=== PATIENT | female | born 1970 | race Caucasian/White ===

== ENCOUNTER 2016-12-05 13:16 | Emergency (ER) | payer OTHER ==
[~2016-12-05] VITALS: Ht 162.6 cm; Wt 80.3 kg
[~2016-12-05 13:16] MED LIST: FLUO20CA36 PO
[2016-12-05 13:19] VITALS: BP 136/75
[2016-12-05] MEDS ORDERED: IBUPROFEN 600 MG TABLET PO ONE ×2 (13:42→14:00)
[2016-12-05] MEDS ORDERED: predniSONE 20 MG TABLET ONE (13:42)
[2016-12-05] MEDS ORDERED: predniSONE 20 MG TABLET PO ONE (14:00)
== END 2016-12-05 13:58 | disposition home or self-care (01) ==
LOC: ER 13:17
DX: J02.9 Acute pharyngitis, unspecified (principal); J45.909 Unspecified asthma, uncomplicated; F41.9 Anxiety disorder, unspecified; F32.9 Major depressive disorder, single episode, unspecified; F17.200 Nicotine dependence, unspecified, uncomplicated; F31.9 Bipolar disorder, unspecified; Z88.8 Allergy status to other drugs, medicaments and biological substances
CPT/HCPCS: 99283; A4606; J7512; Z7610

== ENCOUNTER 2017-01-18 09:33 | Emergency (ER) | payer OTHER ==
[~2017-01-18] VITALS: Ht 162.6 cm; Wt 79.4 kg
--- NOTE | 2017-01-18 09:40 | NUR ---
Bibra from home due to RUQ/ and epigastric pain, 10/10, constant pain since last night. Patient also reported nausea, vomitting and diarhea. Patient is aao3, afebrile and non diaphoretic,. vss. gowend and placed on tele monitor. Awaiting for md
--- NOTE | 2017-01-18 09:48 | NUR ---
Iv accesed to rac 20. blood sample collected
--- NOTE | 2017-01-18 09:49 | NUR ---
Urine sample collected and sent to lab
--- NOTE | 2017-01-18 09:50 | NUR ---
AT BEDSIDE FOR EVAL
[2017-01-18] MEDS ORDERED: IV NS 0.9% 1,000 ML BAG IV ONE (10:00)
[2017-01-18] MEDS ORDERED: ONDANSETRON HCL/PF 4 MG/2 ML VIAL IVP ONE (10:00)
[2017-01-18] MEDS ORDERED: KETOROLAC TROMETHAMINE INJ 30 MG/ML VIAL IV ONE (10:00)
[2017-01-18] MEDS ORDERED: IV NS 0.9% 1,000 ML ONE (10:01)
[2017-01-18] MEDS ORDERED: ONDANSETRON HCL/PF 4 MG/2 ML VIAL ONE (10:01)
[2017-01-18] MEDS ORDERED: KETOROLAC TROMETHAMINE INJ 30 MG/ML VIAL ONE (10:01)
[2017-01-18 10:06] LABS: BASOPHILS % (AUTO) 0.2 % (0.0-2.0); EOSINOPHILS % (AUTO) 0.5 % (0.0-6.0); HEMATOCRIT 42 % (33-45); HEMOGLOBIN 13.4 g/dL (11.5-14.8); LYMPHOCYTES # (AUTO) 1.5 /CMM (0.8-4.8); LYMPHOCYTES % (AUTO) 15.8 % (20.0-44.0); MEAN CORPUSCULAR HEMOGLOBIN 28 PG (26.0-33.0); MEAN CORPUSCULAR HGB CONC 32 g/dl (31.0-36.0); MEAN CORPUSCULAR VOLUME 87 fL (82-100); MONOCYTES # (AUTO) 0.2 /CMM (0.1-1.30); MONOCYTES % (AUTO) 2.1 % (2.0-12.0); NEUTROPHILS # (AUTO) 8.1 /CMM (1.8-8.9); NEUTROPHILS % (AUTO) 81.4 % (43.0-81.0); PLATELET COUNT (AUTO) 344 /CMM (150-450); RDW COEFFICIENT OF VARIATION 14.6 (11.5-15.0); RED BLOOD CELL COUNT(AUTO) 4.76 MIL/uL (4.0-5.2); WHITE BLOOD COUNT (AUTO) 9.8 K/uL (4.3-11.0)
[2017-01-18 10:09] LABS: APPEARANCE,URINE Clear (CLEAR); BILIRUBIN,URINE Negative (NEGATIVE); BLOOD, URINE Negative Ery/uL (NEGATIVE); COLOR,URINE Yellow (YELLOW); KETONES,URINE 40 (NEGATIVE); LEUKOCYTE ESTERASE ,URINE Negative (NEGATIVE); NITRITE, URINE Negative (NEGATIVE); PROTEIN,URINE Negative (NEGATIVE); UGLUCOSE Negative (NEGATIVE); UROBILINOGEN,URINE 0.2 EU/dL (0.2)
[2017-01-18 10:11] LABS: PREGNANCY TEST URINE QUAL NEGATIVE (NEGATIVE)
[2017-01-18 10:11] LABS: CALCIUM, SERUM 9.7 mg/dL (8.5-10.1); CREATININE 1.1 mg/dL (0.6-1.3)
--- NOTE | 2017-01-18 10:13 | NUR ---
Medicated patient as ordered
[2017-01-18 10:18] LABS: ALBUMIN 3.6 g/dL (3.4-5.0); BILIRUBIN,DIRECT 0.1 mg/dL (0.0-0.2); BILIRUBIN,TOTAL 0.4 mg/dL (0.2-1.0); TOTAL PROTEIN, SERUM 7.3 g/dL (6.4-8.2)
--- NOTE | 2017-01-18 10:24 | NUR ---
us and ct not available at this time, dr rodriguez and patient informed
[2017-01-18 10:36] LABS: ADD URINE CULTURE NO; BACTERIA,URINE Rare /HPF (None Seen); RBC,URINE 0-2 /HPF (0-2); SQUAMOUS EPITHELIAL CELL,UR Rare /HPF (None Seen); WBC,URINE 0-2 /HPF (0-3)
[2017-01-18 13:08] VITALS: BP 114/58
--- NOTE | 2017-01-18 13:09 | NUR ---
IV removed. Catheter intact and site benign. Pressure and 4x4 applied to site. No bleeding noted.
--- NOTE | 2017-01-18 13:09 | NUR ---
Patient discharged to home in stable condition. Written and verbal after care instructions given. Patient verbalizes understanding of instruction.
== END 2017-01-18 13:10 | disposition home or self-care (01) ==
LOC: ER 09:34
DX: K80.20 Calculus of gallbladder without cholecystitis without obstruction (principal); K80.50 Calculus of bile duct without cholangitis or cholecystitis without obstruction; J45.909 Unspecified asthma, uncomplicated; F41.9 Anxiety disorder, unspecified; F32.9 Major depressive disorder, single episode, unspecified; F31.9 Bipolar disorder, unspecified; F17.200 Nicotine dependence, unspecified, uncomplicated; Z88.8 Allergy status to other drugs, medicaments and biological substances; Z91.048 Other nonmedicinal substance allergy status
CPT/HCPCS: 36415; 76705-TC; 80048-TC; 80076-TC; 81000-TC; 83690-TC; 84703-TC; 85025-TC; A4606; J1885; J2405; J7030; Z7610

== ENCOUNTER 2017-01-22 06:59 | Emergency (ER) | payer OTHER ==
[~2017-01-22] VITALS: Ht 162.6 cm; Wt 79.4 kg
--- NOTE | 2017-01-22 07:05 | NUR ---
46 YO FEMALE BB SELF. PT IS ALERT X 3, C/O RIGHT UPPER ABD PAIN SINCE LAST NIGHT. PT STATES SHE HAD A RECENT DX OF GALLSTONES, AND THE PAIN FEELS LIKE THE GALLSTONE PAIN. PT AMBULATED TO ER BED WITH STEADY GAIT. PT SEEMS MODERATE PAIN. PT GOWNED,PLACED ON CLAIMS SUPERVISOR. WILL CONTINUE TO MONITOR
--- NOTE | 2017-01-22 07:07 | NUR ---
CHRISTOPH RODRIGUEZ MD AT BED SIDE FOR EVAL
--- NOTE | 2017-01-22 07:10 | NUR ---
RAC #20 IV ACCESS. BLOOD SAMPLE COLLECTED SENT TO LAB
[2017-01-22] MEDS ORDERED: IV SET PRIMARY PUMP SET 1 EA INFUS.SET MC ONE (07:17)
[2017-01-22] MEDS ORDERED: ONDANSETRON HCL/PF 4 MG/2 ML VIAL ONE (07:17)
[2017-01-22] MEDS ORDERED: HYDROMORPHONE 1 MG/1 ML DISP.SYRIN ONE (07:17)
[2017-01-22] MEDS ORDERED: IV NS 0.9% 500 ML IV ONE (07:17)
[2017-01-22 07:27] LABS: BASOPHILS # (AUTO) 0.1 /CMM (0.0-0.2); BASOPHILS % (AUTO) 0.8 % (0.0-2.0); EOSINOPHILS # (AUTO) 0.1 /CMM (0.0-0.7); HEMATOCRIT 36 % (33-45); HEMOGLOBIN 11.9 g/dL (11.5-14.8); LYMPHOCYTES # (AUTO) 2.1 /CMM (0.8-4.8); MEAN CORPUSCULAR HEMOGLOBIN 29 PG (26.0-33.0); MEAN CORPUSCULAR HGB CONC 33 g/dl (31.0-36.0); MEAN CORPUSCULAR VOLUME 87 fL (82-100); MONOCYTES # (AUTO) 0.4 /CMM (0.1-1.30); MONOCYTES % (AUTO) 5.1 % (2.0-12.0); NEUTROPHILS # (AUTO) 4.7 /CMM (1.8-8.9); NEUTROPHILS % (AUTO) 64.1 % (43.0-81.0); PLATELET COUNT (AUTO) 330 /CMM (150-450); RED BLOOD CELL COUNT(AUTO) 4.07 MIL/uL (4.0-5.2); WHITE BLOOD COUNT (AUTO) 7.4 K/uL (4.3-11.0)
[2017-01-22] MEDS ORDERED: HYDROMORPHONE INJ 2 MG/ML DISP.SYRIN IV ONE (07:30)
[2017-01-22] MEDS ORDERED: ONDANSETRON HCL/PF 4 MG/2 ML VIAL IVP ONE (07:30)
[2017-01-22] MEDS ORDERED: IV NS 0.9% 500 ML BAG IV ONE (07:30)
[2017-01-22 07:38] LABS: CALCIUM, SERUM 9.3 mg/dL (8.5-10.1); POTASSIUM 3.8 mmol/L (3.5-5.1)
[2017-01-22 07:43] LABS: ALBUMIN 3.2 g/dL (3.4-5.0); BILIRUBIN,DIRECT 0.1 mg/dL (0.0-0.2); BILIRUBIN,TOTAL 0.3 mg/dL (0.2-1.0); TOTAL PROTEIN, SERUM 6.5 g/dL (6.4-8.2)
--- NOTE | 2017-01-22 08:00 | NUR ---
URINE SAMPLE COLLECTED SENT TO LAB
[2017-01-22 08:23] VITALS: BP 113/73
--- NOTE | 2017-01-22 08:23 | NUR ---
IV removed. Catheter intact and site benign. Pressure and 4x4 applied to site. No bleeding noted.
--- NOTE | 2017-01-22 08:23 | NUR ---
Patient discharged to home in stable condition. Written and verbal after care instructions given. Patient verbalizes understanding of instruction.
[2017-01-22 08:52] LABS: APPEARANCE,URINE CLEAR (CLEAR); BILIRUBIN,URINE NEGATIVE (NEGATIVE); BLOOD, URINE NEGATIVE Ery/uL (NEGATIVE); COLOR,URINE YELLOW (YELLOW); KETONES,URINE NEGATIVE (NEGATIVE); LEUKOCYTE ESTERASE ,URINE NEGATIVE (NEGATIVE); NITRITE, URINE NEGATIVE (NEGATIVE); PH,URINE 5.5 (5.0-8.0); PROTEIN,URINE NEGATIVE (NEGATIVE); UGLUCOSE NEGATIVE (NEGATIVE); UROBILINOGEN,URINE 0.2 EU/dL (0.2)
[2017-01-22 08:54] LABS: PREGNANCY TEST URINE QUAL NEGATIVE (NEGATIVE)
== END 2017-01-22 09:00 | disposition home or self-care (01) ==
LOC: EDUNIT# 06:59 → ER 07:00
DX: K80.20 Calculus of gallbladder without cholecystitis without obstruction (principal); J45.909 Unspecified asthma, uncomplicated; F41.9 Anxiety disorder, unspecified; F32.9 Major depressive disorder, single episode, unspecified; F31.9 Bipolar disorder, unspecified; F17.200 Nicotine dependence, unspecified, uncomplicated; Z88.8 Allergy status to other drugs, medicaments and biological substances
CPT/HCPCS: 36415; 80048; 80076; 81001; 83690; 84703; 85025; 96374; 96375; 99284; A4606; J1170; J2405; J7040; Z7610; 81000-TC

== ENCOUNTER 2017-07-18 17:01 | Emergency (ER) | payer OTHER ==
[~2017-07-18] VITALS: Ht 167.6 cm; Wt 74.8 kg
--- NOTE | 2017-07-18 17:15 | NUR ---
R UPPER QUADRANT ABD PAIN, NON RADIATING WITH NAUSEA AND VOMITING. NAD NOTED. PT AAO X4, AMB WITH STEADY GAIT. RR EVEN AND UNLABORED. PENDING MD COVINGTON.
[2017-07-18] MEDS ORDERED: ACETAMINOPHEN 325 MG TABLET PO ONE (17:30)
[2017-07-18] MEDS ORDERED: IV NS 0.9% 1,000 ML BAG IV ONE (17:30)
[2017-07-18] MEDS ORDERED: ONDANSETRON HCL/PF 4 MG/2 ML VIAL IVP ONE (17:30)
--- NOTE | 2017-07-18 17:35 | NUR ---
URINE OBTAINED SENT TO LAB
--- NOTE | 2017-07-18 17:36 | NUR ---
ULTRASOUND AT BEDSIDE.
[2017-07-18] MEDS ORDERED: ONDANSETRON HCL/PF 4 MG/2 ML VIAL ONE (17:42)
[2017-07-18] MEDS ORDERED: ACETAMINOPHEN ES 500 MG TABLET ONE (17:42)
[2017-07-18 17:45] LABS: BASOPHILS # (AUTO) 0.1 /CMM (0.0-0.2); BASOPHILS % (AUTO) 0.5 % (0.0-2.0); EOSINOPHILS # (AUTO) 0.1 /CMM (0.0-0.7); EOSINOPHILS % (AUTO) 0.6 % (0.0-6.0); HEMATOCRIT 41 % (33-45); HEMOGLOBIN 13.8 g/dL (11.5-14.8); LYMPHOCYTES # (AUTO) 3.1 /CMM (0.8-4.8); MEAN CORPUSCULAR HEMOGLOBIN 30 PG (26.0-33.0); MEAN CORPUSCULAR HGB CONC 34 g/dl (31.0-36.0); MEAN CORPUSCULAR VOLUME 88 fL (82-100); MONOCYTES # (AUTO) 0.5 /CMM (0.1-1.30); MONOCYTES % (AUTO) 5.3 % (2.0-12.0); NEUTROPHILS % (AUTO) 61.6 % (43.0-81.0); PLATELET COUNT (AUTO) 312 /CMM (150-450); RDW COEFFICIENT OF VARIATION 15.2 (11.5-15.0); WHITE BLOOD COUNT (AUTO) 9.8 K/uL (4.3-11.0)
[2017-07-18 17:55] LABS: CALCIUM, SERUM 9.5 mg/dL (8.5-10.1); CREATININE 0.8 mg/dL (0.6-1.3); POTASSIUM 3.6 mmol/L (3.5-5.1)
[2017-07-18 18:02] LABS: ALBUMIN 3.8 g/dL (3.4-5.0); BILIRUBIN,DIRECT 0.1 mg/dL (0.0-0.2); BILIRUBIN,TOTAL 0.3 mg/dL (0.2-1.0); TOTAL PROTEIN, SERUM 7.4 g/dL (6.4-8.2)
[2017-07-18] MEDS ORDERED: KETOROLAC TROMETHAMINE INJ 30 MG/ML VIAL ONE (18:30)
[2017-07-18] MEDS ORDERED: KETOROLAC TROMETHAMINE INJ 30 MG/ML VIAL IV ONE (18:30)
[2017-07-18] MEDS ORDERED: METOCLOPRAMIDE HCL 10 MG/2 ML VIAL IV ONE (18:30)
[2017-07-18] MEDS ORDERED: METOCLOPRAMIDE HCL 10 MG/2 ML VIAL ONE (18:30)
[2017-07-18 19:02] VITALS: BP 137/63
--- NOTE | 2017-07-18 19:07 | NUR ---
IV removed. Catheter intact and site benign. Pressure and 4x4 applied to site. No bleeding noted. Patient discharged to home in stable condition. Written and verbal after care instructions given. Patient verbalizes understanding of instruction. ambulatory with a steady gait. instructed not to drive. pt verbalized understanding.
== END 2017-07-18 19:03 | disposition home or self-care (01) ==
LOC: ER 17:04
DX: K80.50 Calculus of bile duct without cholangitis or cholecystitis without obstruction (principal); K80.20 Calculus of gallbladder without cholecystitis without obstruction; R11.2 Nausea with vomiting, unspecified; J45.909 Unspecified asthma, uncomplicated; F41.9 Anxiety disorder, unspecified; F32.9 Major depressive disorder, single episode, unspecified; F31.9 Bipolar disorder, unspecified; Z88.8 Allergy status to other drugs, medicaments and biological substances; Z88.1 Allergy status to other antibiotic agents; F17.200 Nicotine dependence, unspecified, uncomplicated
CPT/HCPCS: 36415; 76705; 80048; 80076; 83690; 85025; 96361; 96374; 96375; 99285; A4606; J1885; J2405; J2765; J7030; Z7610

== ENCOUNTER 2017-09-12 19:01 | Emergency (ER) | payer OTHER ==
[~2017-09-12] VITALS: Ht 162.6 cm; Wt 76.2 kg
[2017-09-12 19:28] LABS: BASOPHILS # (AUTO) 0.1 /CMM (0.0-0.2); BASOPHILS % (AUTO) 0.6 % (0.0-2.0); EOSINOPHILS # (AUTO) 0.1 /CMM (0.0-0.7); EOSINOPHILS % (AUTO) 0.5 % (0.0-6.0); HEMATOCRIT 39 % (33-45); HEMOGLOBIN 12.9 g/dL (11.5-14.8); LYMPHOCYTES # (AUTO) 3.6 /CMM (0.8-4.8); LYMPHOCYTES % (AUTO) 29.4 % (20.0-44.0); MEAN CORPUSCULAR HEMOGLOBIN 30 PG (26.0-33.0); MEAN CORPUSCULAR HGB CONC 33 g/dl (31.0-36.0); MEAN CORPUSCULAR VOLUME 90 fL (82-100); MONOCYTES # (AUTO) 0.6 /CMM (0.1-1.30); NEUTROPHILS # (AUTO) 7.9 /CMM (1.8-8.9); NEUTROPHILS % (AUTO) 64.5 % (43.0-81.0); PLATELET COUNT (AUTO) 420 /CMM (150-450); RDW COEFFICIENT OF VARIATION 14.6 (11.5-15.0); RED BLOOD CELL COUNT(AUTO) 4.33 MIL/uL (4.0-5.2); WHITE BLOOD COUNT (AUTO) 12.3 K/uL (4.3-11.0)
[2017-09-12] MEDS ORDERED: KETOROLAC TROMETHAMINE INJ 30 MG/ML VIAL IV ONE (19:30)
[2017-09-12] MEDS ORDERED: ONDANSETRON HCL/PF 4 MG/2 ML VIAL IVP ONE (19:30)
[2017-09-12] MEDS ORDERED: MORPHINE SULFATE INJ 2 MG/ML DISP.SYRIN IV ONE (19:30)
--- NOTE | 2017-09-12 19:30 | NUR ---
46 Y/O FEMALE PLACED IN BED 7 C/O RIGHT UPPER QUAD PAIN AFTER EATING TOP LIZZY AND ROAST BEEF. HX OF GALL STONES.
[2017-09-12] MEDS ORDERED: ONDANSETRON HCL/PF 4 MG/2 ML VIAL ONE (19:33)
[2017-09-12] MEDS ORDERED: MORPHINE SULFATE INJ 4 MG/ML DISP.SYRIN ONE (19:33)
[2017-09-12] MEDS ORDERED: KETOROLAC TROMETHAMINE INJ 30 MG/ML VIAL ONE (19:33)
[2017-09-12 19:38] LABS: CALCIUM, SERUM 9.4 mg/dL (8.5-10.1); CARBON DIOXIDE 26 mmol/L (21-32); CHLORIDE 107 mmol/L (98-107); GLUCOSE 100 mg/dL (74-106); POTASSIUM 3.6 mmol/L (3.5-5.1); SODIUM SERUM 143 mmol/L (136-145); UREA NITROGEN, BLOOD 10 mg/dL (7-18)
--- NOTE | 2017-09-12 19:40 | NUR ---
PT C/O PAIN WITH N/V/ H/L PLACED AND MEDICATION GIVEN.
[2017-09-12 19:44] LABS: ALANINE AMINOTRANSFERASE 16 U/L (12-78); ALBUMIN 3.6 g/dL (3.4-5.0); ALKALINE PHOSPHATASE 60 U/L (46-116); ASPARTATE AMINOTRANSFERASE 15 U/L (15-37); BILIRUBIN,TOTAL 0.2 mg/dL (0.2-1.0); LIPASE 217 U/L (73-393); TOTAL PROTEIN, SERUM 7.3 g/dL (6.4-8.2)
[2017-09-12 19:46] LABS: TROPONIN I < 0.017 ng/mL (0.00-0.056)
--- NOTE | 2017-09-12 20:17 | NUR ---
PT RESTING COMFORTABLY FOLLOWING MEDICATIONS.
--- NOTE | 2017-09-12 20:37 | NUR ---
DX - GALLSTONES. ACI GIVEN. PT DISCHARGED HOME TO FOLLOW UP WITH PMD. PAIN RESOLVED. N/V RESOLVED.
[2017-09-12 20:38] VITALS: BP 147/85
== END 2017-09-12 20:41 | disposition home or self-care (01) ==
LOC: ER 19:03
DX: K80.20 Calculus of gallbladder without cholecystitis without obstruction (principal); J45.909 Unspecified asthma, uncomplicated; F41.9 Anxiety disorder, unspecified; F31.9 Bipolar disorder, unspecified; F17.200 Nicotine dependence, unspecified, uncomplicated; Z88.8 Allergy status to other drugs, medicaments and biological substances; Z91.048 Other nonmedicinal substance allergy status
CPT/HCPCS: 36415; 76705; 80048; 80076; 83690; 84484; 85025; 93005; 96374; 96375; 99285; A4606; J1885; J2405; Z7610; J2270

== ENCOUNTER 2017-09-26 10:10 | Emergency (ER) | payer OTHER ==
[~2017-09-26] VITALS: Ht 162.6 cm; Wt 72.6 kg
[2017-09-26 10:10] VITALS: BP 159/95
[2017-09-26] MEDS ORDERED: KETOROLAC TROMETHAMINE INJ 60 MG/2 ML VIAL IM ONE (10:30)
--- NOTE | 2017-09-26 10:31 | NUR ---
PATIENT TO ED DT ABDOMINAL PAIN SINCE LAST NIGHT,07/10, NON RADIATING. DX 2 WEEKS AGO WITH GALLSTONE. DENIES NAUSEA AND VOMITTING. VSS
[2017-09-26] MEDS ORDERED: KETOROLAC TROMETHAMINE INJ 30 MG/ML VIAL ONE (10:39)
== END 2017-09-26 10:51 | disposition home or self-care (01) ==
LOC: ER 10:11
DX: K80.70 Calculus of gallbladder and bile duct without cholecystitis without obstruction (principal); J45.909 Unspecified asthma, uncomplicated; F41.9 Anxiety disorder, unspecified; F32.9 Major depressive disorder, single episode, unspecified; F17.200 Nicotine dependence, unspecified, uncomplicated; Z88.8 Allergy status to other drugs, medicaments and biological substances; Z88.1 Allergy status to other antibiotic agents
CPT/HCPCS: A4606; J1885; Z7610

== ENCOUNTER 2017-12-10 13:34 | Emergency (ER) | payer OTHER ==
[~2017-12-10] VITALS: Ht 162.6 cm; Wt 70.3 kg
--- NOTE | 2017-12-10 13:41 | NUR ---
DIFFUSE ABD "STOMACH" PAIN SINCE YESTERDAY, "I FEEL DEHYDRATED" +NAUSEA, -VOMITING/DIARRHEA; FEELS SIMILAR TO EPISODES OF GALLSTONES
--- NOTE | 2017-12-10 14:28 | NUR ---
RAC #20 IV ACCESS. BLOOD SAMPLE COLLECTED SENT TO LAB
[2017-12-10] MEDS ORDERED: ONDANSETRON HCL/PF 4 MG/2 ML VIAL IVP ONE (14:30)
[2017-12-10] MEDS ORDERED: IV NS 0.9% 1,000 ML BAG IV ONE (14:30)
[2017-12-10] MEDS ORDERED: HYDROMORPHONE INJ 2 MG/ML DISP.SYRIN IV ONE (14:30)
--- NOTE | 2017-12-10 14:33 | NUR ---
RAFAEL CERRATO AT BEDSIDE
[2017-12-10 14:35] LABS: BASOPHILS # (AUTO) 0.1 /CMM (0.0-0.2); BASOPHILS % (AUTO) 0.8 % (0.0-2.0); EOSINOPHILS # (AUTO) 0.1 /CMM (0.0-0.7); EOSINOPHILS % (AUTO) 0.5 % (0.0-6.0); HEMATOCRIT 38 % (33-45); LYMPHOCYTES # (AUTO) 1.6 /CMM (0.8-4.8); LYMPHOCYTES % (AUTO) 13.1 % (20.0-44.0); MEAN CORPUSCULAR HEMOGLOBIN 30 PG (26.0-33.0); MEAN CORPUSCULAR HGB CONC 34 g/dl (31.0-36.0); MEAN CORPUSCULAR VOLUME 87 fL (82-100); MONOCYTES # (AUTO) 0.6 /CMM (0.1-1.30); MONOCYTES % (AUTO) 4.7 % (2.0-12.0); NEUTROPHILS # (AUTO) 9.6 /CMM (1.8-8.9); NEUTROPHILS % (AUTO) 80.9 % (43.0-81.0); PLATELET COUNT (AUTO) 335 /CMM (150-450); RDW COEFFICIENT OF VARIATION 15.7 (11.5-15.0); RED BLOOD CELL COUNT(AUTO) 4.32 MIL/uL (4.0-5.2)
--- NOTE | 2017-12-10 14:35 | NUR ---
URINE SAMPLE COLLECTED SENT TO LAB
[2017-12-10 14:40] LABS: APPEARANCE,URINE Clear (CLEAR); BILIRUBIN,URINE Negative (NEGATIVE); BLOOD, URINE Trace-intact Ery/uL (NEGATIVE); COLOR,URINE Yellow (YELLOW); KETONES,URINE Negative (NEGATIVE); LEUKOCYTE ESTERASE ,URINE Negative (NEGATIVE); NITRITE, URINE Negative (NEGATIVE); PH,URINE 6.5 (5.0-8.0); PROTEIN,URINE Negative (NEGATIVE); UGLUCOSE Negative (NEGATIVE); UROBILINOGEN,URINE 0.2 EU/dL (0.2)
[2017-12-10 14:41] LABS: CALCIUM, SERUM 9.6 mg/dL (8.5-10.1); CREATININE 0.8 mg/dL (0.6-1.3); POTASSIUM 4.1 mmol/L (3.5-5.1)
[2017-12-10] MEDS ORDERED: HYDROMORPHONE INJ 2 MG/ML DISP.SYRIN ONE (14:43)
[2017-12-10] MEDS ORDERED: ONDANSETRON HCL/PF 4 MG/2 ML VIAL ONE ×2 (14:45→15:09)
[2017-12-10 14:47] LABS: ALBUMIN 3.4 g/dL (3.4-5.0); BILIRUBIN,DIRECT 2.9 mg/dL (0.0-0.2); BILIRUBIN,TOTAL 3.5 mg/dL (0.2-1.0); TOTAL PROTEIN, SERUM 7.6 g/dL (6.4-8.2)
[2017-12-10 14:57] LABS: BACTERIA,URINE None seen /HPF (None Seen); RBC,URINE 0-2 /HPF (0-2); SQUAMOUS EPITHELIAL CELL,UR Moderate /HPF (None Seen); WBC,URINE 0-2 /HPF (0-3)
[2017-12-10] MEDS ORDERED: KETOROLAC TROMETHAMINE INJ 30 MG/ML VIAL IV ONE (15:00)
[2017-12-10] MEDS ORDERED: KETOROLAC TROMETHAMINE INJ 30 MG/ML VIAL ONE (15:09)
[2017-12-10] MEDS ORDERED: PIPERACILLIN /TAZOBACTAM 3.375 G in IV D5W 50 ML IV ONE (15:30)
--- NOTE | 2017-12-10 15:58 | NUR ---
CALLED [facility] TO SET UP TRANSFER - HOSPITALIST WILL CALL BACK
--- NOTE | 2017-12-10 16:10 | NUR ---
DR CHOWDARY IS HOSPITALIST ASSISNGED TO PATIENT -
--- NOTE | 2017-12-10 16:38 | NUR ---
CALLED [facility] FOR BLS RIG ON WILL CALL - CONFIRMATION# [id number] - [facility] PROVIDED AN AUTH NUMBER IF NEEDED [id number]
--- NOTE | 2017-12-10 16:51 | NUR ---
PATIENT IS ASSIGNED TO ROOM 414A CALL FOR REPORT TO CHARGE NURSE AT BED IS NOT AVAILABLE UNTIL 1900
--- NOTE | 2017-12-10 17:16 | NUR ---
GAVE REPORT TO SELMA CHARGE NURSE AT [facility]
--- NOTE | 2017-12-10 18:35 | NUR ---
CALLED [facility] FOR [facility], SPOKE TO NURIA WALKER-90 MIN TRIP #[phone]
[2017-12-10 19:03] VITALS: BP 151/95
--- NOTE | 2017-12-10 19:22 | NUR ---
GAVE REPORT TO NASEEM FOR [facility]
--- NOTE | 2017-12-10 19:46 | NUR ---
REPROT WAS GIVEN TO EMT FOR TRANSPORT
--- NOTE | 2017-12-10 19:51 | NUR ---
PATIENT LEFT [facility] ED VIA AMBULANCE TO [facility]
== END 2017-12-10 19:47 | disposition short-term general hospital (02) ==
LOC: ER 13:35
DX: K80.70 Calculus of gallbladder and bile duct without cholecystitis without obstruction (principal); F41.9 Anxiety disorder, unspecified; F10.10 Alcohol abuse, uncomplicated; F17.200 Nicotine dependence, unspecified, uncomplicated; F31.9 Bipolar disorder, unspecified; J45.909 Unspecified asthma, uncomplicated; K59.00 Constipation, unspecified; Z88.8 Allergy status to other drugs, medicaments and biological substances; Z88.6 Allergy status to analgesic agent
CPT/HCPCS: 36415; 76705-TC; 80048-TC; 80076-TC; 81000-TC; 83690-TC; 85025-TC; A4606; J1170; J1885; J2405; J2543; J7030; J7060; Z7610

== ENCOUNTER 2018-12-30 13:32 | Emergency (ER) | payer BC, MEDICAID ==
[~2018-12-30] VITALS: Ht 162.6 cm; Wt 74.4 kg
--- NOTE | 2018-12-30 13:45 | NUR ---
PATIENT CAME IN AMBULATORY. C/O RIGHT ARM PAIN AND SWELLING, Dx WITH BREAST CANCER. AAO X 3
[2018-12-30 13:57] LABS: BASOPHILS % (AUTO) 0.4 % (0.0-2.0); EOSINOPHILS % (AUTO) 0.7 % (0.0-6.0); HEMATOCRIT 35 % (33-45); LYMPHOCYTES # (AUTO) 2.8 /CMM (0.8-4.8); LYMPHOCYTES % (AUTO) 33.8 % (20.0-44.0); MEAN CORPUSCULAR HGB CONC 34 g/dl (31.0-36.0); MEAN CORPUSCULAR VOLUME 93 fL (82-100); MONOCYTES # (AUTO) 0.5 /CMM (0.1-1.30); MONOCYTES % (AUTO) 5.9 % (2.0-12.0); NEUTROPHILS # (AUTO) 4.9 /CMM (1.8-8.9); NEUTROPHILS % (AUTO) 59.2 % (43.0-81.0); PLATELET COUNT (AUTO) 327 /CMM (150-450); RED BLOOD CELL COUNT(AUTO) 3.81 MIL/uL (4.0-5.2); WHITE BLOOD COUNT (AUTO) 8.3 K/uL (4.3-11.0)
[2018-12-30] MEDS ORDERED: HYDROMORPHONE 1 MG/1 ML DISP.SYRIN IV ONE (14:00)
[2018-12-30] MEDS ORDERED: ONDANSETRON HCL/PF 4 MG/2 ML VIAL IV ONE (14:00)
--- NOTE | 2018-12-30 14:00 | NUR ---
DEGRASSE TIRE VULCANIZER AT BEDSIDE
[2018-12-30 14:03] LABS: CALCIUM, SERUM 8.9 mg/dL (8.5-10.1); CREATININE 0.8 mg/dL (0.6-1.3); POTASSIUM 3.7 mmol/L (3.5-5.1)
[2018-12-30] MEDS ORDERED: ONDANSETRON HCL/PF 4 MG/2 ML VIAL ONE (14:04)
[2018-12-30] MEDS ORDERED: HYDROMORPHONE 1 MG/1 ML DISP.SYRIN ONE (14:04)
[2018-12-30 14:14] LABS: ALBUMIN 3.6 g/dL (3.4-5.0); BILIRUBIN,TOTAL 0.2 mg/dL (0.2-1.0); TOTAL PROTEIN, SERUM 7.2 g/dL (6.4-8.2)
[2018-12-30] MEDS ORDERED: NAPROXEN 500 MG TABLET PO ONE (17:00)
[2018-12-30] MEDS ORDERED: oxyCODONE/APAP (5/325 MG) 1 UDTAB TABLET PO ONE (17:00)
[2018-12-30] MEDS ORDERED: NAPROXEN 250 MG TABLET ONE (17:06)
[2018-12-30] MEDS ORDERED: oxyCODONE/APAP (5/325 MG) 1 UDTAB TABLET ONE (17:06)
[2018-12-30 17:43] VITALS: BP 122/79
== END 2018-12-30 17:00 | disposition home or self-care (01) ==
LOC: ER 13:36
DX: L03.113 Cellulitis of right upper limb (principal); I89.0 Lymphedema, not elsewhere classified; F17.200 Nicotine dependence, unspecified, uncomplicated; J45.909 Unspecified asthma, uncomplicated; F41.9 Anxiety disorder, unspecified; F32.9 Major depressive disorder, single episode, unspecified; Z85.3 Personal history of malignant neoplasm of breast; Z88.8 Allergy status to other drugs, medicaments and biological substances; Z91.018 Allergy to other foods; Z79.899 Other long term (current) drug therapy
CPT/HCPCS: 36415; 80053; 85025; 85610; 93971; 96374; 96375; 99284; J1170; J2405

== ENCOUNTER 2019-06-23 11:30 | Emergency (ER) | payer MEDICAID ==
[~2019-06-23] VITALS: Ht 162.6 cm; Wt 69.0 kg
--- NOTE | 2019-06-23 11:39 | NUR ---
DIPAK, FROM HOME, C/O R ARM EDEMA AND PAIN 10/10 PS, LAST CHEMO WAS 3-4 months. TO ER BED 9, HOOKED TO MONITOR, CHANGED TO GOWN, PROVIDED W WARM BLANKET, AWAITING MD COVINGTON.
--- NOTE | 2019-06-23 11:43 | NUR ---
DR EPPS AT BEDSIDE
[2019-06-23 11:58] LABS: BASOPHILS % (AUTO) 0.7 % (0.0-2.0); EOSINOPHILS % (AUTO) 0.6 % (0.0-6.0); HEMATOCRIT 41 % (33-45); HEMOGLOBIN 13.8 g/dL (11.5-14.8); LYMPHOCYTES # (AUTO) 1.2 /CMM (0.8-4.8); LYMPHOCYTES % (AUTO) 18.6 % (20.0-44.0); MEAN CORPUSCULAR HGB CONC 33 g/dl (31.0-36.0); MEAN CORPUSCULAR VOLUME 93 fL (82-100); MONOCYTES # (AUTO) 0.4 /CMM (0.1-1.30); MONOCYTES % (AUTO) 5.3 % (2.0-12.0); NEUTROPHILS # (AUTO) 4.9 /CMM (1.8-8.9); NEUTROPHILS % (AUTO) 74.8 % (43.0-81.0); PLATELET COUNT (AUTO) 372 /CMM (150-450); RED BLOOD CELL COUNT(AUTO) 4.42 MIL/uL (4.0-5.2); WHITE BLOOD COUNT (AUTO) 6.6 K/uL (4.3-11.0)
[2019-06-23] MEDS ORDERED: HYDROMORPHONE 1 MG/1 ML DISP.SYRIN ONE (11:59)
[2019-06-23] MEDS ORDERED: HYDROMORPHONE 1 MG/1 ML DISP.SYRIN IM ONE (12:00)
[2019-06-23 12:06] LABS: CALCIUM, SERUM 9.8 mg/dL (8.5-10.1); POTASSIUM 4.4 mmol/L (3.5-5.1)
--- NOTE | 2019-06-23 12:09 | NUR ---
US TECH AT BEDSIDE
[2019-06-23 12:12] LABS: ALBUMIN 3.6 g/dL (3.4-5.0); BILIRUBIN,DIRECT 0.1 mg/dL (0.0-0.2); BILIRUBIN,TOTAL 0.3 mg/dL (0.2-1.0); TOTAL PROTEIN, SERUM 7.8 g/dL (6.4-8.2)
--- NOTE | 2019-06-23 12:28 | NUR ---
WHEELED OUT VIA RNEY FOR CT SCAN
[2019-06-23] MEDS ORDERED: ONDANSETRON 4 MG TAB.RAPDIS PO ONE (12:30)
[2019-06-23] MEDS ORDERED: ONDANSETRON 4 MG TAB.RAPDIS ONE (12:37)
--- NOTE | 2019-06-23 13:59 | NUR ---
PROVIDED W SANDWICH AND WATER
--- NOTE | 2019-06-23 14:19 | NUR ---
Patient given written and verbal discharge instructions. Patient verbalizes understanding of instructions. Patient is ambulatory with steady gait. Refuses offer of intermediate placement. Patient currently staying at [facility] [address] provided by [facility], speaking to Nilly. Patient given list of available shelters in surrounding area. Patient assisted to waiting room, will be picked up by friend Marie Whelan [phone] . patient discharged in proper clothing. Name band removed.
[2019-06-23 14:24] VITALS: BP 143/102
== END 2019-06-23 14:26 | disposition home or self-care (01) ==
LOC: ER 11:31
DX: I89.0 Lymphedema, not elsewhere classified (principal); M79.601 Pain in right arm; Z85.3 Personal history of malignant neoplasm of breast; J45.909 Unspecified asthma, uncomplicated; F41.9 Anxiety disorder, unspecified; F32.9 Major depressive disorder, single episode, unspecified; F17.200 Nicotine dependence, unspecified, uncomplicated; Z88.8 Allergy status to other drugs, medicaments and biological substances; Z91.048 Other nonmedicinal substance allergy status; Z79.899 Other long term (current) drug therapy
CPT/HCPCS: 36415; 71250; 80048; 80076; 83690; 84703; 85025; 93971; 96372; 99284; J1170; Q0162